=== PATIENT | male | born 1985 | race Caucasian/White ===

== ENCOUNTER 2016-07-20 12:38 | Emergency (ER) | payer SELFPAY ==
--- NOTE | ~2016-07-20 | ER ---
PATIENT'S NAME: [facility] AGE: 31 Y [address] ROOM: [place] [address] LOCATION: [facility] ADMIT DATE: 07/20/2016 ER/Outpatient Report DISCHARGE DATE: 07/20/2016 FAMILY PHYSICIAN: PHYSICIAN, NO ATTENDING PHYSICIAN: Jimbo Marino Time of Arrival: 1239 hours. Time of Exam: 1239 hours. CHIEF COMPLAINT: Hand laceration. HISTORY OF PRESENT ILLNESS: The patient states he was working on a go-cart when he cut his left hand on a piece of metal from a go-cart that he was working on. He went next door to his neighbor's house who is an EMT and did pass out the neighbor reported. He was transported here per [facility]. They did put a pressure dressing on it. He has good sensation to the tips of his fingers. Able to move his fingers. Denies any other injury from the incident. ALLERGIES: PENICILLIN. MEDICATIONS: None. PAST MEDICAL HISTORY: Benign. PAST SURGERIES: Negative. He does smoke 1 pack per day and smokes marijuana on a regular basis. Denies use of alcohol. States his last tetanus was in 2010 when he was in skilled nursing. REVIEW OF SYSTEMS: All negative other than those mentioned in the HPI. PHYSICAL EXAMINATION: VITAL SIGNS: He weighed 74.7 kg. Blood pressure is 125/73, pulse is 71, respirations 20, temperature of 96 tympanic, and O2 saturations 100% on room air. GENERAL: He is awake, alert, and oriented x4. Skin: [place], warm, and dry. RESPIRATIONS: Even and nonlabored. Lung sounds are clear throughout. HEART: Regular rate and rhythm. PATIENT'S NAME: HEMAL [facility] AGE: 31 Y [address] ROOM: [place], [place] [address] LOCATION: [facility] ADMIT DATE: 07/20/2016 ER/Outpatient Report DISCHARGE DATE: 07/20/2016 FAMILY PHYSICIAN: PHYSICIAN, NO ATTENDING PHYSICIAN: Jimbo Marino ABDOMEN: Soft, nondistended. Bowel sounds are present. MUSCULOSKELETAL: The patient has a 1-cm laceration to the dorsal left hand, that is at the base of the second digit. No bleeding at this time. EMERGENCY ROOM COURSE: X-ray was completed. No bony abnormality noted. No foreign object seen. Left hand laceration was cleansed well with saline, anesthetized with 1% plain Xylocaine, and then cleansed well with saline and Betadine. Laceration was closed with 4-0 Ethilon x2 stitches. The patient tolerated the procedure well. Area was cleansed with Betadine and a Band-Aid were applied. IMPRESSION: Laceration. PLAN: Home. Rest. Wound care instructions were given. He is to keep the area clean and dry. Tylenol or ibuprofen for discomfort. Follow up with his primary provider in the next 2-3 days if signs of infection, otherwise, in 7- 10 days for suture removal. He verbalized understanding. STEVEN MERA APRN FOR DO NANCIE GARRETT/say /[id number] d: 07/20/162012 t: 08/01/16 1233, OUTPATIENT REPORT
== END 2016-07-20 13:16 | disposition disaster alternative care site (69) ==
LOC: GACC 12:38
PROC: 0HQGXZZ Repair Left Hand Skin, External Approach (ICD-10-PCS; principal; 2016-07-20)
DX: S61.412A Laceration without foreign body of left hand, initial encounter (principal); F17.210 Nicotine dependence, cigarettes, uncomplicated; Z88.0 Allergy status to penicillin; W26.8XXA Contact with other sharp object(s), not elsewhere classified, initial encounter; Y92.69 Other specified industrial and construction area as the place of occurrence of the external cause; Y99.0 Civilian activity done for income or pay